=== PATIENT | female | born 2005 | race Caucasian/White ===

== ENCOUNTER 2025-06-10 15:56 | Inpatient (IN) ==
[2025-06-10] MEDS ORDERED: OXYTOCIN 30 UNITS/NSS 30 UNITS/500 ML BAG IV PRN (16:14)
[2025-06-10] MEDS ORDERED: LIDOCAINE 1% LOCAL 20 ML VIAL INFIL PRN (16:14)
[2025-06-10 17:07] LABS: Hematocrit (blood only) 35.3 % (37.0-47.0); Hemoglobin 12.2 g/dl (12.0-16.0); Mean Corpuscular Hemoglobin 29.5 pg (25.0-34.0); Mean Corpuscular Volume 85.3 fL (80.0-100.0); Platelet Count 162 K/uL (130-400); RDW Standard Deviation 48.3 fL (36.4-46.3); Red Blood Count 4.14 M/uL (4.20-5.40); White Blood Count 9.37 K/ul (4.8-10.8)
--- NOTE | 2025-06-10 17:12 | History & Physical Report ---
Date of Service June 10, 2025 Assessment & Plan (1) with 39 completed weeks gestation: Plan: induction of labor planned (2) Kidney stone complicating : Plan: possible urology consult post for treatment of kidney stones Admission and Anticipated Discharge Date Admission Date: June 10, 2025 History of Present Illness Chief Complaint: elective induction of labor at 39.2 weeks Primary Care Provider: Shante Killian MD 20 F P0000 at 39.2 weeks admitted for elective induction of labor. Patient has a history of kidney stones during the current . Small bilateral renal calculi noted on renal ultrasound from prior admission. GBS is negative. Allergies Allergy/AdvReac Type Severity Reaction Status Date / Time amoxicillin Allergy Intermediate Hives Verified 02/20/23 15:01 Penicillins Allergy Intermediate Rash Verified 02/20/23 15:01 Home Medications Medication Instructions Recorded Confirmed Type albuterol sulfate 90 mcg/actuation 2 puff inhalation Q6 PRN Wheezing 11/06/22 06/10/25 History aerosol inhaler (Ventolin HFA) fluticasone propionate 44 1 puff inhalation BID 30 days 11/06/22 06/10/25 Rx mcg/actuation HFA aerosol inhaler #10.6 grams (Flovent HFA) vit no.95-ferrous 1 tab PO DAILY 05/04/25 06/10/25 History fumarate 28 mg-folic acid 800 mcg tablet () Patient History Medical History Anemia affecting had iron infusion times 1 Asthma Juanito disease Surgical History H/O right knee surgery History of tonsillectomy and adenoidectomy Family History Father Hypertension Grandmother (Paternal) Diabetes Mother No problems noted. Other Kidney stone Social History Smoking Status: Never smoker Second Hand Exposure: No; Do You Dip or Chew Tobacco: No; Hx Alcohol Use: No Hx Substance Use: No Preferred Language: Tristanian Communication Ability: Effective Visual Impairment: No Limitations Hearing Ability: Normal Cia Agent Required: No Beliefs That Will Affect Care: None marital status: Single Current Living Situation: Significant Other current occupational status: employed current occupation: provider enrollment Other Information That Helps Us Care for You: No Feels Safe at Home: Yes Safety Concerns: Feels Safe At This Time Dental Care, Regularly: No Assistive Devices: None 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 Review of Systems All systems reviewed & are unremarkable except as noted in HPI & below Physical Exam Constitutional: WD/WN, vitals as above Eyes: PERRL, conjunctivae normal, anicteric sclerae Respiratory: normal respiratory effort Cardiovascular: Rate/Rhythm: regular rate and regular rhythm Gastrointestinal (Abdomen): Inspection/Auscultation: abdomen normal to inspection abdomen gravid Musculoskeletal: Extremities: extremities normal to inspection Skin: no rashes, warm and dry Neurologic: patellar DTR's 2+ bilat, sensation intact Psychiatric: A+Ox3, euthymic affect Genitourinary: no vaginal lesions, no adnexal mass Manual OB Exam: + cervical dilation fingertip, + cervical effacement 50% and + station high OB Exam Monitor Tracing: + external FHT monitor used, + external uterine monitor used, + category I and + normal FHT variability Cervix firm/posterior/ft/thick/-[address] Cervidil for cervical ripening Results & Data Vital Signs (Past 12 Hours) Vital Signs Temp Pulse Resp BP 06/10/25 16:18 37.1 C 20 06/10/25 16:12 102 H 120/69 Laboratory Results Laboratory Results - last 24 hr 06/10/25 16:37 WBC 9.37 RBC 4.14 L Hgb 12.2 Hct 35.3 L MCV 85.3 MCH 29.5 MCHC 34.6 RDW Std Deviation 48.3 H RDW Coeff of Wilmar 15.4 H Plt Count 162 MPV 10.7 Treponema pallidum Ab Pending Monitoring External Monitor Cat 1 (2) Kidney stone complicating Trimester: third trimester Qualified Code(s): O99.891 - Other specified diseases and conditions complicating ; N20.0 - Calculus of kidney
[2025-06-10] MEDS ORDERED: CALCIUM CARBONATE 500 MG CHEWABLE TAB PO PRN (17:35)
[2025-06-10] MEDS: DINOPROSTONE 10 MG INSERT PV ONE (18:09)
--- NOTE | 2025-06-10 18:17 | Labor Progress Brief Note ---
Date of Service June 10, 2025 Assessment & Plan Admission and Anticipated Discharge Date Admission Date: June 10, 2025 Physical Exam Genitourinary: OB Exam Monitor Tracing: + external FHT monitor used, + external uterine monitor used, + category I and + normal FHT variability Cervidil 10 mg placed vaginally Results & Data Vital Signs (Past 12 Hours) Vital Signs Temp Pulse Resp BP 06/10/25 17:15 18 06/10/25 17:15 18 06/10/25 16:18 37.1 C 20 06/10/25 16:12 102 H 120/69
[2025-06-11] MEDS: BUTORPHANOL TARTRATE 1 MG/ML VIAL IV PRN (02:35)
[2025-06-11] MEDS: LACTATED RINGER'S 1,000 ML IV PRN (08:47)
[2025-06-11] MEDS: DINOPROSTONE 10 MG INSERT PV ONE (09:31)
--- NOTE | 2025-06-11 09:33 | Obstetrical Progress Note ---
Date of Service June 11, 2025 Assessment & Plan Admission and Anticipated Discharge Date Admission Date: June 10, 2025 Subjective Patient is seen and examined. She was admitted last night for induction of labor at term for history of kidney stones. reviewed her history and records. She feels mild irregular contractions, does not need the pain medication for them. She denies , leakage of fluid, vaginal bleeding. Vital signs stable afebrile, heart rate category 1, GBS negative, Cervix is fingertip, firm, 50%, posterior, head is at -3 station. Cervidil is placed discussed the findings and recommended cervical ripening Continue to monitor All questions were answered. Results & Data Vital Signs (Past 12 Hours) Vital Signs Temp Pulse Resp BP Pulse Ox 06/11/25 07:15 36.8 C 20 06/11/25 07:15 80 112/70 06/11/25 07:14 36.8 C 06/11/25 05:55 36.7 C 76 125/67 06/11/25 05:47 90 97 06/11/25 05:42 97 H 97 06/11/25 05:37 94 H 98 06/11/25 05:32 86 97 06/11/25 05:27 91 H 99 06/11/25 05:22 77 97 06/11/25 05:17 79 98 06/11/25 05:12 81 97 06/11/25 05:07 74 96 06/11/25 05:02 75 96 06/11/25 04:57 71 97 06/11/25 04:52 76 97 06/11/25 04:47 75 96 06/11/25 04:42 77 97 06/11/25 04:37 87 97 06/11/25 04:33 76 94 06/11/25 04:32 83 95 06/11/25 04:27 76 95 06/11/25 04:25 83 94 06/11/25 04:22 75 95 06/11/25 04:20 76 94 06/11/25 04:17 77 95 06/11/25 04:13 79 94 06/11/25 04:12 79 95 06/11/25 04:07 79 93 06/11/25 04:02 84 94 06/11/25 03:57 108 H 95 06/11/25 03:56 78 94 06/11/25 03:52 80 93 06/11/25 03:47 87 94 06/11/25 03:42 75 94 06/11/25 03:37 84 93 06/11/25 03:33 77 94 06/11/25 03:32 78 94 06/11/25 03:27 76 94 06/11/25 03:22 79 95 06/11/25 03:21 76 94 06/11/25 03:17 76 94 06/11/25 03:13 78 94 06/11/25 03:12 82 95 06/11/25 03:07 77 94 06/11/25 03:02 78 94 06/11/25 02:57 94 06/11/25 02:57 87 06/11/25 02:57 94 H 94 06/11/25 02:52 75 95 06/11/25 02:51 80 94 06/11/25 02:47 79 95 06/11/25 02:43 81 94 06/11/25 02:42 82 94 06/11/25 02:37 73 100 06/11/25 02:36 71 116/64 06/11/25 02:32 71 98 06/11/25 02:27 74 98 06/11/25 02:22 94 H 98 06/11/25 02:17 76 98 06/11/25 02:12 86 98 06/11/25 02:07 76 97 06/11/25 02:02 72 98 06/11/25 01:05 94 H 97 06/11/25 01:00 80 95 06/11/25 00:55 91 H 96 06/10/25 22:10 36.7 C 06/10/25 22:10 98 06/10/25 22:10 84 06/10/25 22:10 105/55 L
[2025-06-11] MEDS ORDERED: ALBUTEROL HFA 8 GM INHALER INH PRN (09:34)
[2025-06-11] MEDS: FLUTICASONE FUROATE 100MCG 14 PUFFS/INHALER INH SCH (15:03)
--- NOTE | 2025-06-11 15:51 | Obstetrical Progress Note ---
Date of Service June 11, 2025 Assessment & Plan Admission and Anticipated Discharge Date Admission Date: June 10, 2025 Subjective Patient is reevaluated. She feels well, no complaints. She feels mild ir regular contractions, they are not painful yet. She denies any pain medication. No leakage of fluid or vaginal bleeding. She reports good movements. heart rate has been category 1, [place] with mild irregular contractions every 2 to 6 minutes, Continue to monitor closely, Discussed the possible plan tonight depending on the cervix, Small balloon mechanical dilatation together with IV oxytocin, Patient understands all, All questions were answered. Results & Data Vital Signs (Past 12 Hours) Vital Signs Temp Pulse Resp BP Pulse Ox 06/11/25 14:57 36.9 C 14 06/11/25 14:57 36.9 C 14 06/11/25 14:56 81 123/58 L 06/11/25 14:36 16 06/11/25 14:36 16 06/11/25 13:14 18 06/11/25 13:14 36.6 C 18 06/11/25 12:53 83 124/58 L 06/11/25 11:00 18 06/11/25 11:00 18 06/11/25 10:30 18 06/11/25 10:30 18 06/11/25 10:00 20 06/11/25 10:00 20 06/11/25 09:30 18 06/11/25 09:30 18 06/11/25 09:00 18 06/11/25 09:00 18 06/11/25 07:15 36.8 C 20 06/11/25 07:15 80 112/70 06/11/25 07:14 36.8 C 06/11/25 05:55 36.7 C 76 125/67 06/11/25 05:47 90 97 06/11/25 05:42 97 H 97 06/11/25 05:37 94 H 98 06/11/25 05:32 86 97 06/11/25 05:27 91 H 99 06/11/25 05:22 77 97 06/11/25 05:17 79 98 06/11/25 05:12 81 97 06/11/25 05:07 74 96 06/11/25 05:02 75 96 06/11/25 04:57 71 97 06/11/25 04:52 76 97 06/11/25 04:47 75 96 06/11/25 04:42 77 97 06/11/25 04:37 87 97 06/11/25 04:33 76 94 06/11/25 04:32 83 95 06/11/25 04:27 76 95 06/11/25 04:25 83 94 06/11/25 04:22 75 95 06/11/25 04:20 76 94 06/11/25 04:17 77 95 06/11/25 04:13 79 94 06/11/25 04:12 79 95 06/11/25 04:07 79 93 06/11/25 04:02 84 94 06/11/25 03:57 108 H 95 06/11/25 03:56 78 94 06/11/25 03:52 80 93
--- NOTE | 2025-06-11 21:34 | Obstetrical Progress Note ---
Date of Service June 11, 2025 Assessment & Plan Admission and Anticipated Discharge Date Admission Date: June 10, 2025 Subjective patient feels about the same, mild irregular contractions, not painful yet. Denies leakage of fluid or vaginal bleeding. Reports good movements. Vital signs stable afebrile, heart rate category 1, Cervidil was removed by myself, cervix is 1.5 cm, 20% effaced, -3 station, softer than this morning, Discussed mechanical dilatation with Small balloon and low-dose oxytocin per protocol. Patient will eat and then will place Small balloon, All questions were answered. Results & Data Vital Signs (Past 12 Hours) Vital Signs Temp Pulse Resp BP 06/11/25 19:12 104 H 115/68 06/11/25 18:17 88 126/58 L 06/11/25 14:57 36.9 C 14 06/11/25 14:57 36.9 C 14 06/11/25 14:56 81 123/58 L 06/11/25 14:36 16 06/11/25 14:36 16 06/11/25 13:14 18 06/11/25 13:14 36.6 C 18 06/11/25 12:53 83 124/58 L 06/11/25 11:00 18 06/11/25 11:00 18 06/11/25 10:30 18 06/11/25 10:30 18 06/11/25 10:00 20 06/11/25 10:00 20
[2025-06-11] MEDS ORDERED: OXYTOCIN 30 UNITS/NSS 30 UNITS/500 ML BAG IV PRN (22:30)
[2025-06-11] MEDS: miSOPROStoL 50 MCG TAB PO SCH (23:41)
--- NOTE | 2025-06-12 00:02 | Obstetrical Progress Note ---
Date of Service June 12, 2025 Assessment & Plan Admission and Anticipated Discharge Date Admission Date: June 10, 2025 Subjective Patient decided not to have Small balloon She asked for other options and wanted PO Cytotec, received 1st dose Continue to monitor closely Results & Data Vital Signs (Past 12 Hours) Vital Signs Temp Pulse Resp BP Pulse Ox 06/11/25 23:44 80 97 06/11/25 23:41 77 124/58 L 06/11/25 23:02 96 H 98 06/11/25 22:57 82 97 06/11/25 22:52 83 97 06/11/25 22:47 82 97 06/11/25 22:42 83 96 06/11/25 22:37 91 H 97 06/11/25 22:32 82 99 06/11/25 22:27 85 98 06/11/25 22:22 94 H 99 06/11/25 22:17 82 98 06/11/25 22:12 93 H 99 06/11/25 21:52 86 123/65 06/11/25 19:12 104 H 115/68 06/11/25 18:17 88 126/58 L 06/11/25 14:57 36.9 C 14 06/11/25 14:57 36.9 C 14 06/11/25 14:56 81 123/58 L 06/11/25 14:36 16 06/11/25 14:36 16 06/11/25 13:14 18 06/11/25 13:14 36.6 C 18 06/11/25 12:53 83 124/58 L
[2025-06-12] MEDS: PRENATAL VITAMIN 1 TAB PO SCH (09:00)
--- NOTE | 2025-06-12 10:10 | Labor Progress Brief Note ---
Date of Service June 12, 2025 Assessment & Plan Admission and Anticipated Discharge Date Admission Date: June 10, 2025 Physical Exam Genitourinary: Manual OB Exam: + cervical dilation, + cervical effacement 50% and + station high OB Exam Monitor Tracing: + external FHT monitor used, + external uterine monitor used, + category I and + normal FHT variability option given to patient to continue the induction with Small balloon/Cytotec for need for further cervical ripening vs. sending the patient home to re-start induction on Sunday. Patient is opting for Small despite her cervix continuing to be unripe. She was given the risks of elective induction vs waiting to go into labor or induction for medical reasons. Small inserted trans-cervically with 35 ml. saline in the balloon. Patient tolerated the procedure well. Results & Data Vital Signs (Past 12 Hours) Vital Signs Pulse BP Pulse Ox 06/12/25 10:04 111 H 130/68 06/12/25 08:02 101 H 135/84 06/12/25 04:03 91 H 98 06/12/25 04:02 89 122/68 06/11/25 23:44 80 97 06/11/25 23:41 77 124/58 L 06/11/25 23:02 96 H 98 06/11/25 22:57 82 97 06/11/25 22:52 83 97 06/11/25 22:47 82 97 06/11/25 22:42 83 96 06/11/25 22:37 91 H 97 06/11/25 22:32 82 99 06/11/25 22:27 85 98 06/11/25 22:22 94 H 99 06/11/25 22:17 82 98 06/11/25 22:12 93 H 99
[2025-06-12] MEDS: miSOPROStoL 50 MCG TAB PO SCH (10:58)
--- NOTE | 2025-06-12 20:32 | Labor Progress Brief Note ---
Date of Service June 12, 2025 Assessment & Plan Admission and Anticipated Discharge Date Admission Date: June 10, 2025 Physical Exam Genitourinary: Manual OB Exam: + cervical dilation 2 cm and 3 cm, + cervical effacement 60% and + station high OB Exam Monitor Tracing: + external FHT monitor used, + external uterine monitor used, + category I and + normal FHT variability cervix still posterior and firm. Small out. Will start Oxytocin. EFW 7-8 lbs. Results & Data Vital Signs (Past 12 Hours) Vital Signs Temp Pulse Resp BP 06/12/25 19:16 95 H 123/69 06/12/25 19:09 18 06/12/25 19:09 36.6 C 18 06/12/25 16:59 36.6 C 86 20 125/69 06/12/25 15:06 97 H 139/72 06/12/25 11:01 20 06/12/25 11:01 37.0 C 20 06/12/25 11:00 86 125/64 06/12/25 10:04 111 H 130/68
[2025-06-12] MEDS: OXYTOCIN 30 UNITS/NSS 30 UNITS/500 ML BAG IV PRN (21:01)
[2025-06-12] MEDS: LACTATED RINGER'S 1,000 ML IV SCH (22:30)
[2025-06-12] MEDS: LIDOCAINE 2%/EPINEPHRINE 1:200,000 20 ML PF ONE (23:08)
[2025-06-12] MEDS: BUPIVACAINE 0.25% PF 30 ML VIAL ONE (23:08)
[2025-06-12] MEDS: fentANYL 2 MCG/ML BUPIVacaine 0.125%-NSS 100ML BAG ONE (23:09)
[2025-06-12] MEDS: SODIUM CHLORIDE 0.9% PF INJ 10 ML VIAL ONE (23:19)
--- NOTE | 2025-06-12 23:20 | Anesthesiology Consultation ---
Date of Service June 12, 2025 Assessment & Plan Chart Review Chart Review: Acceptable Risk for Labor Epidural Consults Requested none History Height/Weight Height: 5 ft 4 in Weight: 86.183 kg Allergies Allergy/AdvReac Type Severity Reaction Status Date / Time amoxicillin Allergy Intermediate Hives Verified 02/20/23 15:01 Penicillins Allergy Intermediate Rash Verified 02/20/23 15:01 Medications Home Medications Medication Instructions Recorded Confirmed Last Taken albuterol sulfate 90 mcg/actuation 2 puff inhalation Q6 PRN Wheezing 11/06/22 06/10/25 Unknown aerosol inhaler (Ventolin HFA) fluticasone propionate 44 1 puff inhalation BID 30 days 11/06/22 06/10/25 06/10/25 mcg/actuation HFA aerosol inhaler #10.6 grams (Flovent HFA) vit no.95-ferrous 1 tab PO DAILY 05/04/25 06/10/25 06/10/25 fumarate 28 mg-folic acid 800 mcg tablet () Active Medications Generic Name Dose Route Start Last Admin Trade Name Aubreyq PRN Reason Stop Dose Admin Fluticasone Furoate 1 puffs 06/11/25 10:00 06/12/25 09:00 Fluticasone Furoate 100mcg 14 Puffs/Inhaler INH 07/11/25 09:59 Not Given DAILY TYRONE Oxytocin 30 units in 500 mls @ 5 mls/hr 06/12/25 20:32 06/12/25 22:30 Pitocin 30 Units/Nss IV 06/14/25 20:31 0.3 units/hr .Q24H PRN 5 mls/hr Labor Induction/Augmentation Titration Protocol 0.3 UNITS/HR Prenat Multivit/[place]/Iron/Folic Ac 1 tab 06/12/25 09:00 06/12/25 09:00 Vitamin 1 Tab PO 07/12/25 08:59 Not Given DAILY TYRONE Past Medical History Medical History Anemia affecting had iron infusion times 1 Asthma Juanito disease Past Family History Family History Father Hypertension Grandmother (Paternal) Diabetes Mother No problems noted. Other Kidney stone Past Surgical History Surgical History H/O right knee surgery History of tonsillectomy and adenoidectomy Social History Smoking Status: Never smoker Do You Dip or Chew Tobacco: No Hx Alcohol Use: No Hx Substance Use: No substance use type: does not use Physical Exam Vital Signs Last Vital Signs Temp 36.6 C 06/12/25 19:09 Pulse 115 H 06/12/25 23:18 Resp 18 06/12/25 19:09 BP 107/56 L 06/12/25 23:12 Pulse Ox 95 06/12/25 23:18 Testing Laboratory Results 06/10/25 16:37
[2025-06-12] MEDS ORDERED: diphenhydrAMINE 50 MG/ML VIAL IV PRN (23:21)
[2025-06-12] MEDS ORDERED: NALOXONE HCL 1 MG in SODIUM CHLORIDE 0.9% 1,000 ML IV PRN (23:21)
[2025-06-12] MEDS ORDERED: NALBUPHINE HCL INJ 10 MG/ML AMP IV PRN (23:21)
[2025-06-12] MEDS ORDERED: SODIUM CHLORIDE 0.9% PF INJ 10 ML VIAL EPI PRN (23:21)
[2025-06-12] MEDS ORDERED: fentANYL 2 MCG/ML BUPIVacaine 0.125%-NSS 100ML BAG EPI PRN (23:21)
[2025-06-12] MEDS ORDERED: NALOXONE HCL 0.4 MG/1 ML VIAL/CARP IV PRN (23:21)
[2025-06-12] MEDS ORDERED: LIDOCAINE 2% MPF LOCAL 5 ML VIAL EPI PRN (23:21)
[2025-06-12] MEDS ORDERED: BUPIVACAINE 0.25% PF 30 ML VIAL EPI PRN (23:21)
[2025-06-12] MEDS ORDERED: ROPIVACAINE 0.5% PF 5 MG/ML 20 ML VIAL EPI PRN (23:21)
--- NOTE | 2025-06-13 01:06 | Labor Progress Brief Note ---
Date of Service June 13, 2025 Assessment & Plan Admission and Anticipated Discharge Date Admission Date: June 10, 2025 Physical Exam Genitourinary: Manual OB Exam: + cervical dilation 5 cm, + cervical effacement 80%, + station -2 and + amniotic fluid (AROM with Amni-hook clear fluid) clear OB Exam Monitor Tracing: + external FHT monitor used, + external uterine monitor used, + category I and + normal FHT variability Results & Data Vital Signs (Past 12 Hours) Vital Signs Temp Pulse Resp BP Pulse Ox 06/13/25 01:03 126 H 100 06/13/25 01:01 108 H 93 06/13/25 00:58 100 H 98 06/13/25 00:55 109 H 92 06/13/25 00:53 104 H 99 06/13/25 00:48 107 H 97 06/13/25 00:44 107 H 105/59 L 06/13/25 00:43 102 H 97 06/13/25 00:38 100 H 94 06/13/25 00:35 89 94 06/13/25 00:33 100 H 95 06/13/25 00:29 84 94 06/13/25 00:28 99 H 110/56 L 92 06/13/25 00:23 86 91 06/13/25 00:21 85 93 06/13/25 00:18 104 H 94 06/13/25 00:15 86 93 06/13/25 00:13 93 06/13/25 00:13 107 H 06/13/25 00:13 108 H 107/55 L 06/13/25 00:08 83 92 06/13/25 00:03 97 H 94 06/12/25 23:58 97 H 110/58 L 92 06/12/25 23:53 95 H 91 06/12/25 23:48 102 H 91 06/12/25 23:44 103 H 103/55 L 06/12/25 23:43 87 92 06/12/25 23:38 89 92 06/12/25 23:36 107 H 94 06/12/25 23:33 113 H 92 06/12/25 23:29 126 H 97/52 L 06/12/25 23:28 110 H 93 06/12/25 23:23 103 H 95 06/12/25 23:22 110 H 94 06/12/25 23:20 18 06/12/25 23:20 18 06/12/25 23:18 115 H 95 06/12/25 23:17 94 H 93 06/12/25 23:15 18 06/12/25 23:15 36.7 C 18 06/12/25 23:13 113 H 94 06/12/25 23:12 100 H 06/12/25 23:12 113 H 107/56 L 93 06/12/25 23:10 100 H 112/56 L 06/12/25 23:08 121 H 109/55 L 95 06/12/25 23:07 117 H 110/62 06/12/25 23:06 111 H 94 06/12/25 23:03 109 H 93 06/12/25 22:58 131 H 95 06/12/25 22:53 128 H 100 06/12/25 22:49 129 H 92 06/12/25 22:48 132 H 92 06/12/25 22:43 119 H 95 06/12/25 22:07 108 H 114/59 L 06/12/25 21:07 113 H 125/73 06/12/25 19:16 95 H 123/69 06/12/25 19:09 18 06/12/25 19:09 36.6 C 18 06/12/25 16:59 36.6 C 86 20 125/69 06/12/25 15:06 97 H 139/72
[2025-06-13] MEDS: BUPIVACAINE 0.25% PF 30 ML VIAL ONE (02:52)
[2025-06-13] MEDS: BUPIVACAINE 0.25% PF 30 ML VIAL EPI STA (02:53)
[2025-06-13] MEDS: LIDOCAINE 2%/EPINEPHRINE 1:200,000 20 ML PF EPI STA (02:54)
[2025-06-13] MEDS: SODIUM CHLORIDE 0.9% PF INJ 10 ML VIAL EPI STA (02:54)
[2025-06-13] MEDS ORDERED: DIPHTHER/TETAN/PERTUS Vaccine (Tdap, Adol/Adult) 0.5mL IM ONE (04:11)
[2025-06-13] MEDS ORDERED: ACETAMINOPHEN 325 MG TAB PO PRN (04:11)
[2025-06-13] MEDS ORDERED: HYDROCORTISONE ACETATE 25 MG SUPP PR PRN (04:11)
[2025-06-13] MEDS ORDERED: OXYTOCIN 30 UNITS/NSS 30 UNITS/500 ML BAG IV PRN (04:11)
--- NOTE | 2025-06-13 04:15 | Delivery Summary ---
Vaginal Delivery Summary Date of Service June 13, 2025 Vaginal Delivery Summary live female YULIA over intact perineum with delayed cord clamping and Apgars 8/9 weight pending. Cord blood obtained followed by spontaneous delivery of intact placenta. Second degree tear repaired with 3/0 Vicryl suture. QBL 300 ml. Final sponge, needle and instrument count are correct. Mom and baby stable.
[2025-06-13] MEDS: IBUPROFEN 600 MG TAB PO PRN (07:41)
[2025-06-13] MEDS: BENZOCAINE 20% SPRY 85 APPLN/85 GM CAN EXT PRN (08:14)
[2025-06-13] MEDS: FERROUS SULFATE 325 MG TAB PO SCH (08:44)
[2025-06-13] MEDS: DOCUSATE SODIUM 100 MG CAP PO SCH (08:44)
[2025-06-13] MEDS: PRENATAL VITAMIN 1 TAB PO SCH (08:45)
--- NOTE | 2025-06-13 11:39 | Anesthesia Procedure Note ---
Date of Service June 13, 2025 Anesthesia Post Epidural Note Vital Signs Vital Signs: Temp Pulse Resp BP Pulse Ox O2 Del Method 37.2 C 103 H 18 101/64 99 Room Air 06/13/25 08:15 06/13/25 08:15 06/13/25 08:15 06/13/25 08:15 06/13/25 08:15 06/13/25 08:15 Pain Intensity Abdomen: Pain Intensity: 2 Notes Mental Status: alert / awake / arousable and participated in evaluation Nausea / Vomiting: adequately controlled Pain: adequately controlled Airway Patency, RR, SpO2: stable & adequate BP & HR: stable & adequate Hydration State: stable & adequate Neuraxial Anesthesia: was administered and sensory block is resolving Anesthetic Complications: no major complications apparent and Pt Satisfied with anesthetic care Epidural: Removed without complications and With tip intact
[2025-06-14 03:09] VITALS: TEMP 97.9
[2025-06-14 06:57] LABS: Hematocrit (blood only) 31.2 % (37.0-47.0); Hemoglobin 10.5 g/dl (12.0-16.0); Mean Corpuscular Hemoglobin 29.2 pg (25.0-34.0); Mean Corpuscular Volume 86.9 fL (80.0-100.0); Platelet Count 131 K/uL (130-400); RDW Standard Deviation 49.6 fL (36.4-46.3); Red Blood Count 3.59 M/uL (4.20-5.40); White Blood Count 16.37 K/ul (4.8-10.8)
--- NOTE | 2025-06-14 08:28 | Obstetrical Progress Note ---
Date of Service June 14, 2025 Assessment & Plan Admission and Anticipated Discharge Date Admission Date: June 10, 2025 Subjective Patient is seen and examined. She feels well, no complaints. Ambulating without dizziness Voiding without difficulty Tolerating regular diet with out N&V Bleeding is minimal No fever/ chills/ CP/ SOB/ N&V/ Leg pain Bottle feeding without problems Vital Signs Temp Pulse Resp BP Pulse Ox O2 Del Method 06/14/25 03:07 36.6 C 82 16 100/62 98 Room Air 06/13/25 23:06 36.5 C 89 18 110/73 96 Room Air 06/13/25 20:30 36.4 C L 90 16 106/68 99 Room Air Lab Results 06/10/25 06/14/25 Range/Units 16:37 06:12 WBC 9.37 16.37 H (4.8-10.8) K/ul RBC 4.14 L 3.59 L (4.20-5.40) M/uL Hgb 12.2 10.5 L (12.0-16.0) g/dl Hct 35.3 L 31.2 L (37.0-47.0) % MCV 85.3 86.9 (80.0-100.0) fL MCH 29.5 29.2 (25.0-34.0) pg MCHC 34.6 33.7 (32.0-36.0) g/dL RDW Std Deviation 48.3 H 49.6 H (36.4-46.3) fL RDW Coeff of Wilmar 15.4 H 15.5 H (11.5-14.5) % Plt Count 162 131 (130-400) K/uL MPV 10.7 10.9 (9.4-12.4) fL Treponema pallidum Ab Negative (Negative) PE: General: Alert, orientedx3, NAD Abd: soft, NT, fundus firm, below Umbilicus Perineum intact, Lochia rubra minimal Ext; NT, no edema AP: 20 yo s/p , ppd# 1 VSS Afebrile doing well Continue routine care All questions were answered Desires d/c today Discussed when to call Results & Data Vital Signs (Past 12 Hours) Vital Signs Temp Pulse Resp BP Pulse Ox O2 Del Method 06/14/25 03:07 36.6 C 82 16 100/62 98 Room Air 06/13/25 23:06 36.5 C 89 18 110/73 96 Room Air 06/13/25 20:30 36.4 C L 90 16 106/68 99 Room Air
[2025-06-14 09:03] VITALS: BP 116/72; PULSE 86; RESP 18; O2SAT 97
== END 2025-06-14 10:45 | disposition home or self-care (01) | DRG 807 ==
LOC: 4S1 15:56 → 4E2 06-13 07:50